=== PATIENT | female | born 1955 | race Caucasian/White ===

== ENCOUNTER 2019-01-16 18:42 | Emergency (ER) | payer BC ==
[~2019-01-16] VITALS: Ht 170.2 cm; Wt 83.5 kg
[~2019-01-16 18:42] MED LIST: METF1000 PO
[2019-01-16 19:06] VITALS: BP 120/55
--- NOTE | 2019-01-16 19:18 | NUR ---
PT AMBULATED TO LOBBY WITH VS. PT PROVIDED URINE SPECIMEN.
[2019-01-16 19:54] LABS: BASOPHILS # (AUTO) 0.1 K/uL (0.00-0.22); BASOPHILS % (AUTO) 0.7 % (0.0-2.0); EOSINOPHILS # (AUTO) 0.1 K/uL (0-0.4); EOSINOPHILS % (AUTO) 0.8 % (0.0-4.0); HEMATOCRIT 28.6 % (36-48); HEMOGLOBIN 8.6 g/dL (12.0-16.0); LYMPHOCYTES # (AUTO) 1.3 K/uL (2.5-16.5); LYMPHOCYTES % (AUTO) 15.3 % (20.5-51.1); MEAN CORPUSCULAR HEMOGLOBIN 20 pg (27-31); MEAN CORPUSCULAR HGB CONC 30 g/dL (33-37); MEAN CORPUSCULAR VOLUME 67.2 fL (80-94); MONOCYTES # (AUTO) 0.6 K/uL (0.8-1.0); MONOCYTES % (AUTO) 6.7 % (1.7-9.3); NEUTROPHILS # (AUTO) 6.4 K/uL (1.8-7.7); NEUTROPHILS % (AUTO) 76.5 % (42.2-75.2); PLATELET COUNT (AUTO) 221 K/uL (140-450); RED BLOOD CELL COUNT(AUTO) 4.26 MIL/uL (4.20-5.40); RED CELL DISTRIBUTION WIDTH 21.1 % (11.6-13.7); WHITE BLOOD COUNT (AUTO) 8.4 K/uL (4.8-10.8)
[2019-01-16 20:15] LABS: ANION GAP 14.7 (8-16); CARBON DIOXIDE 27.2 mmol/L (21-32); CREATININE 0.7 mg/dL (0.6-1.3); POTASSIUM 3.9 mmol/L (3.5-5.1)
--- NOTE | 2019-01-16 20:46 | NUR ---
PT AMBULATED TO ER BED 04
--- NOTE | 2019-01-16 21:05 | NUR ---
63 Y/O F PRESENTS TO ER FOR REFERRAL FROM URGENT CARE. PT NEEDS HEMOGLOBIN CHECK, AND WERE UNABLE TO PERFORM AT URGENT CARE. PT STATES SHE HAS HEADACHE, DIZZINESS, LIGHTHEADEDNESS, AND NUMBNESS TO HANDS AND FEET. PT REPORTS HAVING DARK STOOLS AND HAS HEMORRHOIDS. PT C/O PRESSURE PAIN TO SUPRAPUBIC AREA. PAIN LEVEL 5/10, CONSTANT PAIN. HOB ELEVATED, BED IN LOWEST POSITION, BED RAIL UP X1. WAITING FOR ERMD TO EVALUATE PT. ALLERGIES: NKA MED HX: HEMORRHOIDS, DM, ANEMIA, HIGH CHOLESTEROL, DEPRESSION, AND ACID REFLUX.
--- NOTE | 2019-01-16 21:26 | NUR ---
DR. BRADFORD EVALUATING PT AT BEDSIDE
[2019-01-16 21:45] VITALS: BP 113/65
--- NOTE | 2019-01-16 21:45 | NUR ---
Patient discharged with v/s stable. Written and verbal after care instructions given and explained. Pt encouraged to follow up with PCP in 4-5 days. Pt instructed to take pain medication as needed and to drink plenty of fluid. Patient alert, oriented and verbalized understanding of instructions. Ambulatory with steady gait. All questions addressed prior to discharge. ID band removed. Patient advised to follow up with PMD. Rx of ZOFRAN 8MG, MOTRIN 800MG AND NORCO 5MG WAS given. Patient educated on indication of medication including possible reaction and side effects. Opportunity to ask questions provided and answered.
== END 2019-01-16 21:45 | disposition home or self-care (01) ==
LOC: MED 18:42
DX: R10.9 Unspecified abdominal pain (principal); R53.1 Weakness; R11.2 Nausea with vomiting, unspecified; E11.9 Type 2 diabetes mellitus without complications; Z98.890 Other specified postprocedural states; Z79.84 Long term (current) use of oral hypoglycemic drugs; Z90.710 Acquired absence of both cervix and uterus
CPT/HCPCS: 36415; 71045; 80048; 81002; 81025; 85025; 87804; 99284; Q0092

== ENCOUNTER 2021-12-01 12:39 | Emergency (ER) | payer OTHER, BC ==
[~2021-12-01] VITALS: Ht 162.6 cm; Wt 83.5 kg
[~2021-12-01 12:39] MED LIST changes: +METF-1274 PO; -METF1000 PO
[2021-12-01 12:47] VITALS: BP 143/77
--- NOTE | 2021-12-01 13:10 | NUR ---
SEEN BY DR JIMENEZ
--- NOTE | 2021-12-01 13:19 | NUR ---
Patient was taken to CT via [facility].
--- NOTE | 2021-12-01 13:52 | NUR ---
Patient returned from CT.
--- NOTE | 2021-12-01 13:55 | NUR ---
Dr. Mercado evaluating patient at bedside.
[2021-12-01] MEDS ORDERED: ACET-10509 PO (14:14)
[2021-12-01] MEDS ORDERED: IBUP-2230 PO (14:14)
--- NOTE | 2021-12-01 14:20 | NUR ---
SUGAR TONG APPLIED TO L LOWER ARM. SALINA WRAP X 2. SLING APPLIED. + CMS Addendum: 12/01/21 at 1527 by [facility] PER ANAMARIA SHCWAB, SUGAR TONG REMOVED AND THUMB SPICA APPLIED. + CMS. SALINA WRAP X 1. PT PROVIDED WITH SALINA WRAP. INITIAL SLING WAS REMOVED AND PROVIDED TO PT. + CMS.
[2021-12-01 15:31] VITALS: BP 136/78
--- NOTE | 2021-12-01 15:31 | NUR ---
Patient discharged with v/s stable. Written and verbal after care instructions given. Patient alert, oriented and verbalized understanding of instructions. Ambulatory with steady gait. All questions addressed prior to discharge. ID band removed. Patient advised to follow up with PMD. Rx of Acetaminophen and Tylenol given. Opportunity to ask questions provided and answered.
--- NOTE | 2021-12-01 15:32 | NUR ---
The patient's care was reviewed and supervised by Kendra Aj RN.
== END 2021-12-01 15:31 | disposition home or self-care (01) ==
LOC: MED 12:39
DX: S62.002A Unspecified fracture of navicular [scaphoid] bone of left wrist, initial encounter for closed fracture (principal); S60.212A Contusion of left wrist, initial encounter; S40.012A Contusion of left shoulder, initial encounter; S50.02XA Contusion of left elbow, initial encounter; S00.83XA Contusion of other part of head, initial encounter; S14.159A Other incomplete lesion at unspecified level of cervical spinal cord, initial encounter; R42 Dizziness and giddiness; E11.9 Type 2 diabetes mellitus without complications; K21.9 Gastro-esophageal reflux disease without esophagitis; Z79.84 Long term (current) use of oral hypoglycemic drugs; Z79.899 Other long term (current) drug therapy; W19.XXXA Unspecified fall, initial encounter; Y93.89 Activity, other specified; Y92.89 Other specified places as the place of occurrence of the external cause; Y99.8 Other external cause status
CPT/HCPCS: 70450; 70486; 72125; 73030; 73080; 73110; 99285

== ENCOUNTER 2022-01-18 23:18 | Emergency (ER) | payer OTHER, BC ==
[~2022-01-18] VITALS: Ht 170.2 cm; Wt 81.6 kg
[~2022-01-18 23:18] MED LIST changes: +ACET-10509 PO; +IBUP-2230 PO
[2022-01-18 23:26] VITALS: BP 150/78
--- NOTE | 2022-01-19 00:25 | NUR ---
PT TO BED 12
[2022-01-19] MEDS ORDERED: KETOROLAC 60 MG/2 ML VIAL IM ONE (00:45)
[2022-01-19] MEDS ORDERED: cefTRIAXone 1,000 MG in LIDOCAINE MPF 1% 2.1 ML IM ONE (00:45)
[2022-01-19] MEDS ORDERED: cefTRIAXone 1,000 MG VIAL ONE (00:54)
--- NOTE | 2022-01-19 01:00 | NUR ---
PT MEDICATED PER ORDERS GIVEN. PT UPDATED ON POC WITH FULL RETURNED VERBAL UNDERSTANDING.
[2022-01-19] MEDS ORDERED: METH4TAB1 PO (02:07)
[2022-01-19] MEDS ORDERED: BENZ200C4 PO (02:07)
[2022-01-19] MEDS ORDERED: AMOX1TAB8 PO (02:07)
[2022-01-19 02:15] VITALS: BP 150/78
--- NOTE | 2022-01-19 02:15 | NUR ---
Patient discharged with v/s stable. Written and verbal after care instructions given and explained. Patient alert, oriented and verbalized understanding of instructions. Ambulatory with steady gait. All questions addressed prior to discharge. ID band removed. Patient advised to follow up with PMD. Rx of AMOXICILLIN, BENZONATATE, MEDROL given. Patient educated on indication of medication including possible reaction and side effects. Opportunity to ask questions provided and answered.
== END 2022-01-19 02:15 | disposition home or self-care (01) ==
LOC: MED 23:18
DX: R07.89 Other chest pain (principal); R09.1 Pleurisy; E11.9 Type 2 diabetes mellitus without complications; F32.9 Major depressive disorder, single episode, unspecified; E78.5 Hyperlipidemia, unspecified; Z79.899 Other long term (current) drug therapy; Z79.1 Long term (current) use of non-steroidal anti-inflammatories (NSAID); Z79.2 Long term (current) use of antibiotics
CPT/HCPCS: 71045; 93005; 96372; 99284; J0696; J1885; Q0092